=== PATIENT | male | born 2000 | race Hispanic/Latino ===

== ENCOUNTER 2024-09-09 15:17 | Emergency (ER) | payer OTHER ==
[~2024-09-09] VITALS: Ht 167.6 cm; Wt 66.0 kg
[2024-09-09 18:08] VITALS: BP 112/77
== END 2024-09-09 18:08 | disposition other institution, planned readmission (95) ==
LOC: ED 15:17
DX: S01.511A Laceration without foreign body of lip, initial encounter (principal); S00.81XA Abrasion of other part of head, initial encounter; Y04.8XXA Assault by other bodily force, initial encounter; Z88.1 Allergy status to other antibiotic agents
CPT/HCPCS: 70450; 70486; 99284-25